=== PATIENT | male | born 1960 | race Caucasian/White ===

== ENCOUNTER 2019-08-23 13:13 | Emergency (ER) | payer MEDICAID, OTHER ==
[~2019-08-23] VITALS: Ht 180.3 cm; Wt 95.3 kg
[~2019-08-23 13:13] MED LIST: CLIN300C2 PO; HYDR-5191 PO
[2019-08-23 14:07] VITALS: BP 157/74
[2019-08-23] MEDS ORDERED: KETOROLAC 60 MG/2 ML VIAL IM ONE (14:35)
--- NOTE | 2019-08-23 14:38 | NUR ---
PT C/O R KNEE AND LOWER BACK PAIN X 2 HOURS POST INJURY. 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 DENIES LOC. STATES PAIN WORSENS WITH MOVEMENT. PAIN 09/19. PT HAS NOT TAKEN ANY PAIN MEDICATION. STATES WALKING WITH LIMP. +CMS. [facility]- DENIES
--- NOTE | 2019-08-23 14:47 | NUR ---
PT TAKE TO XRAY VIA WHEELCHAIR
--- NOTE | 2019-08-23 15:17 | NUR ---
PT BACK FROM XRAY, IM MEDS GIVEN-NADR AT THIS TIME
[2019-08-23 15:46] VITALS: BP 157/74
--- NOTE | 2019-08-23 15:46 | NUR ---
Patient discharged with v/s stable. Written and verbal after care instructions given and explained. Patient alert, oriented and verbalized understanding of instructions. Ambulatory with steady gait. All questions addressed prior to discharge. ID band removed. Patient advised to follow up with PMD. Rx of NORCO AND FLEXERIL given. Patient educated on indication of medication including possible reaction and side effects. Opportunity to ask questions provided and answered.
== END 2019-08-23 15:46 | disposition home or self-care (01) ==
LOC: MED 13:13
DX: M25.561 Pain in right knee (principal); M54.5 Low back pain; F17.210 Nicotine dependence, cigarettes, uncomplicated; Z79.899 Other long term (current) drug therapy; Z98.890 Other specified postprocedural states; Z88.1 Allergy status to other antibiotic agents; Z88.2 Allergy status to sulfonamides; Z96.652 Presence of left artificial knee joint
CPT/HCPCS: 72110; 73562; 96372; 99284; J1885

== ENCOUNTER 2023-03-25 04:10 | Emergency (ER) | payer OTHER ==
[~2023-03-25] VITALS: Ht 180.3 cm; Wt 86.2 kg
[2023-03-25 04:19] VITALS: BP 127/73; PULSE 65; RESP 15; TEMP 98.7; O2SAT 100
[2023-03-25] MEDS: KETOROLAC 60 MG/2 ML VIAL IM ONE (04:34)
[2023-03-25] MEDS ORDERED: IBUP-2213 PO (05:29)
[2023-03-25 05:46] VITALS: BP 114/82; PULSE 97; RESP 12; O2SAT 100
== END 2023-03-25 05:46 | disposition home or self-care (01) ==
LOC: MED 04:10
DX: S93.401A Sprain of unspecified ligament of right ankle, initial encounter (principal); M79.641 Pain in right hand; M25.562 Pain in left knee; F17.200 Nicotine dependence, unspecified, uncomplicated; Z98.890 Other specified postprocedural states; Z79.899 Other long term (current) drug therapy; Z79.2 Long term (current) use of antibiotics; Z88.2 Allergy status to sulfonamides; Z88.1 Allergy status to other antibiotic agents; Z91.030 Bee allergy status; Z91.018 Allergy to other foods; W18.39XA Other fall on same level, initial encounter; Y92.89 Other specified places as the place of occurrence of the external cause; Y93.89 Activity, other specified; Y99.8 Other external cause status
CPT/HCPCS: 73130; 73610; 96372; 99284; J1885; Q0092